=== PATIENT | female | born 1985 | race Caucasian/White ===

== ENCOUNTER 2020-12-25 13:09 | Emergency (ER) | payer BC, MEDICAID, OTHER ==
--- NOTE | 2020-12-25 15:05 | EDM.PDOC ---
ED HPI GENERAL MEDICAL PROBLEM - General Stated Complaint: LEFT CALF SWALLON, COLD TO THE TOUCH. Time Seen by Provider: 12/25/20 14:50 Source of Information: Reports: Patient, RN, RN Notes Reviewed History Limitations: Reports: No Limitations - History of Present Illness INITIAL COMMENTS - FREE TEXT/NARRATIVE: Patient presents to the ED via personal vehicle with for complaints of pain and swelling to left medial calf. She states she first noted the pain this morning; she notes the pain woke her up. She has taken no medications for this pain. She characterizes the pain as sharp in nature and notes it is localized to the medial upper calf. She denies experiencing pain similar to this in the past. She denies fever, shaking chills, chest pain, palpitations, or recent calf cramps. The patient states she had to bear her hold weight onto this extremity suddenly about a week ago, she is worried she developed a subsequent problem in her calf. - Related Data Allergies Allergy/AdvReac Type Severity Reaction Status Date / Time Penicillins Allergy Other Verified 12/25/20 14:46 NSAIDS (Non-Steroidal AdvReac Other Verified 12/25/20 14:46 Anti-Inflamma Home Meds: Home Meds Cetirizine [ZyrTEC] 10 mg PO BID 12/25/20 [History] EPINEPHrine [Epipen] 0.3 mg IM ASDIRECTED PRN 12/25/20 [History] Review of Systems - Review of Systems Review Of Systems: Comprehensive ROS is negative, except as noted in HPI. ED EXAM, GENERAL - Physical Exam Exam: See Below Exam Limited By: No Limitations General Appearance: Alert, No Apparent Distress Eye Exam: Bilateral Eye: EOMI, Normal Inspection, PERRL (4mm) Nose: Normal Inspection, Normal Mucosa, No Blood Throat/Mouth: Normal Inspection, Normal Lips, Normal Teeth, Normal Gums, Normal Oropharynx, Normal Voice, No Airway Compromise Head: Atraumatic, Normocephalic Respiratory/Chest: No Respiratory Distress, Lungs Clear, Normal Breath Sounds, No Accessory Muscle Use, Chest Non-Tender Cardiovascular: Normal Peripheral Pulses, Regular Rate, Rhythm, No Edema, No Gallop, No JVD, No Murmur, No Rub Peripheral Pulses: 2+: Radial (L), Radial (R), Dorsalis Pedis (L), Dorsalis Pedis (R) Back Exam: Normal Inspection, Full Range of Motion Extremities: Normal Range of Motion, Normal Capillary Refill, Leg Pain (To left upper medial calf). No: Pedal Edema, Ubaldo's Sign, Increased Warmth, Mottled, Pallor, Redness Neurological: Alert, Oriented, CN II-XII Intact, Normal Cognition, Normal Gait, No Motor/Sensory Deficits Psychiatric: Normal Affect, Normal Mood Skin Exam: Warm, Dry, Intact, Normal Color, No Rash. No: Ecchymosis, Erythema, Jaundice, Mottled, Pallor, Petechiae Course - Vital Signs Last Recorded V/S: Last Vital Signs Temp 98.2 F 12/25/20 14:46 Pulse 72 12/25/20 14:46 Resp 18 12/25/20 14:46 BP 136/90 12/25/20 14:46 Pulse Ox 95 12/25/20 14:46 - Orders/Labs/Meds Labs: Laboratory Tests 12/25/20 12/25/20 12/25/20 Range/Units 14:59 14:59 14:59 WBC 8.6 (5.0-10.0) 10^3/uL RBC 4.41 L (4.6-6.2) 10^6/uL Hgb 13.7 L (14.0-18.0) g/dL Hct 39.9 L (40.0-54.0) % MCV 90.5 (80-100) fL MCH 31.1 (27.0-34.0) pg MCHC 34.3 (33.0-35.0) g/dL Plt Count 210 (150-450) 10^3/uL Neut % (Auto) 69.7 (42.2-75.2) % Lymph % (Auto) 22.5 (20.5-50.1) % [place] % (Auto) 6.7 (2-8) % Eos % (Auto) 0.9 L (1.0-3.0) % Baso % (Auto) 0.2 (0.0-1.0) % PT 9.8 (9.0-12.0) SEC INR 1.0 (0.9-1.2) APTT 22.9 (22.0-34.0) SEC D-Dimer, Quantitative 457 H (0-400) ng/mL Sodium 140 (136-145) mmol/L Potassium 4.1 (3.5-5.1) mmol/L Chloride 103 (98-107) mmol/L Carbon Dioxide 27 (21-32) mmol/L Anion Gap 14.1 H (7-13) mEq/L BUN 12 (7-18) mg/dL Creatinine 0.76 (0.70-1.30) mg/dL Est Cr Clr Drug Dosing TNP Estimated GFR (MDRD) > 60 BUN/Creatinine Ratio 15.8 (No establ ref range) Glucose 102 H (74-99) mg/dL Lactic Acid (0.4-2.0) mmol/L Calcium 9.2 (8.5-10.1) mg/dL Magnesium 2.0 (1.8-2.4) mg/dL Total Bilirubin 0.4 (0.2-1.0) mg/dL AST 11 L (15-37) U/L ALT 21 (16-63) U/L Alkaline Phosphatase 71 (46-116) U/L Total Protein 8.1 (6.4-8.2) g/dL Albumin 4.1 (3.4-5.0) g/dL Globulin 4.0 Albumin/Globulin Ratio 1.0 03// Range/Units 14:59 WBC (5.0-10.0) 10^3/uL RBC (4.6-6.2) 10^6/uL Hgb (14.0-18.0) g/dL Hct (40.0-54.0) % MCV (80-100) fL MCH (27.0-34.0) pg MCHC (33.0-35.0) g/dL Plt Count (150-450) 10^3/uL Neut % (Auto) (42.2-75.2) % Lymph % (Auto) (20.5-50.1) % [place] % (Auto) (2-8) % Eos % (Auto) (1.0-3.0) % Baso % (Auto) (0.0-1.0) % PT (9.0-12.0) SEC INR (0.9-1.2) APTT (22.0-34.0) SEC D-Dimer, Quantitative (0-400) ng/mL Sodium (136-145) mmol/L Potassium (3.5-5.1) mmol/L Chloride (98-107) mmol/L Carbon Dioxide (21-32) mmol/L Anion Gap (7-13) mEq/L BUN (7-18) mg/dL Creatinine (0.70-1.30) mg/dL Est Cr Clr Drug Dosing Estimated GFR (MDRD) BUN/Creatinine Ratio (No establ ref range) Glucose (74-99) mg/dL Lactic Acid 1.2 (0.4-2.0) mmol/L Calcium (8.5-10.1) mg/dL Magnesium (1.8-2.4) mg/dL Total Bilirubin (0.2-1.0) mg/dL AST (15-37) U/L ALT (16-63) U/L Alkaline Phosphatase (46-116) U/L Total Protein (6.4-8.2) g/dL Albumin (3.4-5.0) g/dL Globulin Albumin/Globulin Ratio - Re-Assessments/Exams Free Text/Narrative Re-Assessment/Exam: 12/25/20 D-Dimer 457, will obtain venous Doppler US to r/o DVT. Venous Doppler of lower extremity unremarkable for DVT. CBC unremarkable for acute processes; no evidence of infection or anemia. CMP fairly benign, electrolytes are WNL, kidney and liver function is appropriate, however anion gap is slightly elevated at 14.1 Findings of examination, lab work, and US reviewed with patient. Will discharge patient home with instructions for watchful waiting and follow up with PCP. Patient verbalized understanding and agreement with the plan of care. Departure - Departure Time of Disposition: 16:52 Disposition: Home, Self-Care 01 Condition: Good Clinical Impression: Pain of left calf, Swelling of left lower extremity - Discharge Information *PRESCRIPTION DRUG MONITORING PROGRAM REVIEWED*: Not Applicable *COPY OF PRESCRIPTION DRUG MONITORING REPORT IN PATIENT EMILY: Not Applicable Forms: ED Department Discharge Additional Instructions: 1.) You may take Tylenol 650mg every six hours, as pain persists. 2.) Monitor the swelling to your leg, should it continue to increase in size follow up with your primary care provider. Sepsis Event Note (ED) - Evaluation Sepsis Screening Result: No Definite Risk
[2020-12-25 15:26] LABS: ANION GAP 14.1 mEq/L (7-13); CHLORIDE,CL 103 mmol/L (98-107); SODIUM,NA 140 mmol/L (136-145)
[2020-12-25 15:36] LABS: PTT,PARTIAL THROMBOPLSTIN TIME 22.9 SEC (22.0-34.0)
--- NOTE | 2020-12-25 16:43 | US ---
PROCEDURE INFORMATION: Exam: US Duplex Left Lower Extremity Veins, Limited Exam date and time: 12/25/2020 4:12 PM Age: 35 years old Clinical indication: Pain; Leg, lower; Left; Additional info: Pain and edema to left lower extremity TECHNIQUE: Imaging protocol: Real-time Duplex ultrasound of the Left Lower Extremity with 2-D thompson scale, color Doppler flow and spectral waveform analysis with image documentation. Limited exam focused on the left lower extremity veins. COMPARISON: No relevant prior studies available. FINDINGS: Left deep veins: Unremarkable. The common femoral, femoral, proximal profunda femoral and popliteal veins are patent without thrombus. Normal Doppler waveforms. Normal compressibility and/or augmentation response. Left superficial veins: Unremarkable. Saphenofemoral junction is patent without thrombus. Soft tissues: Unremarkable. IMPRESSION: Negative. No deep venous thrombosis is seen.
== END 2020-12-25 17:08 | disposition home or self-care (01) ==
LOC: EDSEX 13:09 → DL.ED 13:09
DX: M79.662 Pain in left lower leg (principal); M79.89 Other specified soft tissue disorders; Z88.0 Allergy status to penicillin; Z88.6 Allergy status to analgesic agent
CPT/HCPCS: 36415; 80053; 83605; 83735; 85025; 85379; 85610; 85730; 93971; 99283; 99284-25

== ENCOUNTER 2021-06-02 04:26 | Emergency (ER) | payer MEDICAID ==
[2021-06-02] MEDS ORDERED: Ondansetron 4 MG/2 ML SDV IVPUSH ONE (04:34)
[2021-06-02] MEDS ORDERED: Sodium Chloride 0.9% 1,000 ML IV ONE (04:37)
[2021-06-02] MEDS ORDERED: Sodium Chloride 0.9% 10 ML Syringe FLUSH PRN (04:46)
[2021-06-02] MEDS ORDERED: Iopamidol 612 MG/ML 100 ML Bottle IVPUSH ONE (04:48)
--- NOTE | 2021-06-02 04:52 | EDM.PDOC ---
ED HPI GENERAL MEDICAL PROBLEM - General Chief Complaint: Gastrointestinal Problem Stated Complaint: VOMITING, NAUSEA, Time Seen by Provider: 06/02/21 04:45 Source of Information: Reports: Patient History Limitations: Reports: No Limitations - History of Present Illness INITIAL COMMENTS - FREE TEXT/NARRATIVE: Pt is here for intractable vomiting that started around 2100 this evening. She had gone out to eat and had the fish, then noted the vomiting started. She is unsure it if was food poisoning or something else. No one else in the family with similar symptoms, but no one else had the fish. She also notes worsening of her chronic RUQ pain as well as diarrhea. She became concerned when she started vomiting some blood about 1 hour prior to arrival. She has a history of chrons disease and has had blood in her stool before, but never in her vomiting. She has had multiple colonoscopies and EGDs with lesion removals. No history of appendix or gallbladder removal. Last colonoscopy was earlier this year. She reports that normally when she starts to vomit, she lets herself then is able to fall asleep, but she is unable to get comfortable or get the vomiting to stop. Onset Date: 06/01/21 Onset Time: 21:00 Duration: Getting Worse Location: Reports: Abdomen Quality: Reports: Throbbing - Related Data Allergies Allergy/AdvReac Type Severity Reaction Status Date / Time Penicillins Allergy Other Verified 12/25/20 14:46 NSAIDS (Non-Steroidal AdvReac Other Verified 12/25/20 14:46 Anti-Inflamma Home Meds: Home Meds Cetirizine [ZyrTEC] 10 mg PO BID 12/25/20 [History] EPINEPHrine [Epipen] 0.3 mg IM ASDIRECTED PRN 12/25/20 [History] Past Medical History Gastrointestinal History: Reports: Other (See Below) Other Gastrointestinal History: Crohn's disease Social & Family History - Caffeine Use Caffeine Use: Reports: Soda ED ROS GENERAL - Review of Systems Review Of Systems: Comprehensive ROS is negative, except as noted in HPI. ED EXAM, GI/ABD - Physical Exam Exam: See Below Exam Limited By: No Limitations General Appearance: Alert, WD/WN, Mild Distress (due to vomiting) Eyes: Bilateral: Normal Appearance Ears: Normal External Exam Throat/Mouth: Normal Voice, No Airway Compromise Head: Atraumatic, Normocephalic Neck: Supple, Non-Tender Respiratory/Chest: No Respiratory Distress, Lungs Clear, Normal Breath Sounds, No Accessory Muscle Use, Chest Non-Tender Cardiovascular: Normal Peripheral Pulses, Regular Rate, Rhythm, No Murmur GI/Abdominal Exam: Normal Bowel Sounds, Soft, Tender (RUQ > epigastric). No: Guarding, Rigid, Rebound (Female) Exam: Deferred Rectal (Female) Exam: Deferred Back Exam: Normal Inspection, Full Range of Motion Extremities: Normal Inspection, Normal Range of Motion Neurological: Alert, Oriented, Normal Cognition Psychiatric: Normal Affect, Normal Mood Skin Exam: Warm, Dry, Intact, Normal Color, No Rash Course - Vital Signs Last Recorded V/S: Last Vital Signs Temp 98.4 F 06/02/21 04:43 Pulse Resp 18 06/02/21 04:43 BP 128/81 06/02/21 04:43 Pulse Ox 97 06/02/21 04:43 - Orders/Labs/Meds Orders: Active Orders 24 hr Category Date Time Status Peripheral IV Care [RC] . DIRECTED Care 06/02/21 04:47 Ordered Sodium Chloride 0.9% [Saline Flush] Med 06/02/21 04:46 Ordered 10 ml FLUSH ASDIRECTED PRN Peripheral IV Insertion Adult [OM.PC] Stat Oth 06/02/21 04:46 Ordered Medication Orders Sodium Chloride (Sodium Chloride 0.9% 10 Ml Syringe) 10 ml FLUSH ASDIRECTED PRN PRN Reason: Keep Vein Open Labs: Laboratory Tests 06/02/21 06/02/21 Range/Units 04:41 04:41 WBC 8.9 (5.0-10.0) 10^3/uL RBC 4.73 (4.2-5.4) 10^6/uL Hgb 14.6 (12.0-16.0) g/dL Hct 42.4 (37.0-47.0) % MCV 89.6 (80-100) fL MCH 30.9 (27.0-34.0) pg MCHC 34.4 (33.0-35.0) g/dL Plt Count 207 (150-450) 10^3/uL Neut % (Auto) 80.8 H (42.2-75.2) % Lymph % (Auto) 12.4 L (20.5-50.1) % [place] % (Auto) 6.4 (2-8) % Eos % (Auto) 0.2 L (1.0-3.0) % Baso % (Auto) 0.2 (0.0-1.0) % Sodium 141 (136-145) mmol/L Potassium 3.6 (3.5-5.1) mmol/L Chloride 100 (98-107) mmol/L Carbon Dioxide 27 (21-32) mmol/L Anion Gap 17.6 H (7-13) mEq/L BUN 10 (7-18) mg/dL Creatinine 0.89 (0.55-1.02) mg/dL Est Cr Clr Drug Dosing 92.20 mL/min Estimated GFR (MDRD) > 60 BUN/Creatinine Ratio 11.2 (No establ ref range) Glucose 147 H (70-99) mg/dL Calcium 9.2 (8.5-10.1) mg/dL Total Bilirubin 0.7 (0.2-1.0) mg/dL AST 19 (15-37) U/L ALT 30 (14-59) U/L Alkaline Phosphatase 72 (46-116) U/L Total Protein 8.2 (6.4-8.2) g/dL Albumin 4.4 (3.4-5.0) g/dL Globulin 3.8 Albumin/Globulin Ratio 1.2 Lipase 96 (73-393) U/L HCG, Qual Negative Meds: Medications Generic Name Dose Route Start Last Admin Trade Name Freq PRN Reason Stop Dose Admin Sodium Chloride 10 ml 06/02/21 04:46 Sodium Chloride 0.9% 10 Ml Syringe FLUSH ASDIRECTED PRN Keep Vein Open Discontinued Medications Generic Name Dose Route Start Last Admin Trade Name Freq PRN Reason Stop Dose Admin Sodium Chloride 1,000 mls @ 999 mls/hr 06/02/21 04:37 06/02/21 04:55 Normal Saline IV 06/02/21 05:37 999 mls/hr .BOLUS ONE Administration Iopamidol 100 ml 06/02/21 04:48 06/02/21 06:02 Iopamidol 612 Mg/Ml 100 Ml Bottle IVPUSH 06/02/21 04:49 75 ml ONETIME ONE Administration Metoclopramide HCl 10 mg 06/02/21 06:00 06/02/21 06:04 Metoclopramide 10 Mg/2 Ml Sdv IVPUSH 06/02/21 06:01 10 mg ONETIME ONE Administration Ondansetron HCl 4 mg 06/02/21 04:34 06/02/21 04:47 Ondansetron 4 Mg/2 Ml Sdv IVPUSH 06/02/21 04:35 4 mg ONETIME ONE Administration Promethazine HCl 50 mg 06/02/21 06:17 06/02/21 06:29 Promethazine 25 Mg/Ml Sdv IM 06/02/21 06:18 50 mg ONETIME ONE Administration - Re-Assessments/Exams Free Text/Narrative Re-Assessment/Exam: Pt is finally feeling better after the phenergan. She denies any nausea and would like to go home. 06/02/21 06:56 Departure - Departure Time of Disposition: 06:57 Disposition: Home, Self-Care 01 Condition: Good Clinical Impression: Gastroenteritis - Discharge Information *PRESCRIPTION DRUG MONITORING PROGRAM REVIEWED*: Not Applicable *COPY OF PRESCRIPTION DRUG MONITORING REPORT IN PATIENT EMILY: Not Applicable Instructions: Viral Gastroenteritis, Adult, [id number] Forms: ED Department Discharge Additional Instructions: Keep well hydrated Phenergan Q8H/PRN for nausea and vomiting Call/return to ER if symptoms return or worsen Sepsis Event Note (ED) - Focused Exam Vital Signs: Vital Signs Temp Resp BP Pulse Ox 06/02/21 04:43 98.4 F 18 128/81 97 - My Orders Last 24 Hours: My Active Orders 06/02/21 04:46 Sodium Chloride 0.9% [Saline Flush] 10 ml FLUSH ASDIRECTED PRN Peripheral IV Insertion Adult [OM.PC] Stat 06/02/21 04:47 Peripheral IV Care [RC] . DIRECTED - Assessment/Plan Last 24 Hours: My Active Orders 06/02/21 04:46 Sodium Chloride 0.9% [Saline Flush] 10 ml FLUSH ASDIRECTED PRN Peripheral IV Insertion Adult [OM.PC] Stat 06/02/21 04:47 Peripheral IV Care [RC] . DIRECTED
[2021-06-02 05:08] LABS: ANION GAP 17.6 mEq/L (7-13); CHLORIDE,CL 100 mmol/L (98-107); SODIUM,NA 141 mmol/L (136-145)
[2021-06-02] MEDS ORDERED: Metoclopramide 10 MG/2 ML SDV IVPUSH ONE (06:00)
[2021-06-02] MEDS ORDERED: Promethazine 25 MG/ML SDV IM ONE (06:17)
--- NOTE | 2021-06-02 06:52 | CT ---
PROCEDURE INFORMATION: Exam: CT Abdomen And Pelvis With Contrast Exam date and time: 06/02/2021 5:48 AM Age: 35 years old Clinical indication: Other: Abdominal pain, intractable vomiting TECHNIQUE: Imaging protocol: Computed tomography of the abdomen and pelvis with contrast. Radiation optimization: All CT scans at this facility use at least one of these dose optimization techniques: automated exposure control; mA and/or kV adjustment per patient size (includes targeted exams where dose is matched to clinical indication); or iterative reconstruction. Contrast material: ISOVUE 300; Contrast volume: 75 ml; Contrast route: INTRAVENOUS (IV); COMPARISON: No relevant prior studies available. FINDINGS: Liver: Unremarkable liver. Gallbladder and bile ducts: No calcified gallstones or biliary ductal dilatation. Pancreas: No suggestion of pancreatic disease. Spleen: No splenomegaly. Adrenal glands: No adrenal mass. Kidneys and ureters: Approximately 8 mm ovoid low-density focus in the left renal cortex, too small to characterize. No hydronephrosis. Stomach and bowel: No distension of most of the stomach. No obstruction. No suggestion of wall thickening. Appendix: Normal appendix. Intraperitoneal space: No free air. Vasculature: Unremarkable. No abdominal aortic aneurysm. Lymph nodes: No enlarged nodes. Urinary bladder: Unremarkable as visualized. Reproductive: Unremarkable as visualized. Bones/joints: Old minimal compression fractures. Degeneration of several discs. Wide central focal disc protrusion at L3-L4 associated with moderate canal stenosis. Soft tissues: No acute finding. IMPRESSION: No acute findings. Chronic abnormalities detailed above. COMMENTS: Consistent with the [employer]'s Incidental Findings Committee white paper (J Am Wolf Radiol 2018): Any incidental renal lesion less than 1 cm or classified as too small to characterize, or any incidental cystic renal lesion characterized as simple-appearing, is likely benign. No follow-up imaging is recommended for these lesions per consensus recommendations based on imaging criteria.
== END 2021-06-02 07:03 | disposition home or self-care (01) ==
LOC: DL.ED 04:26
DX: K52.9 Noninfective gastroenteritis and colitis, unspecified (principal); Z88.0 Allergy status to penicillin; Z88.8 Allergy status to other drugs, medicaments and biological substances
CPT/HCPCS: 36415; 74177; 80053; 83690; 84703; 85025; 96372; 96374; 96375; 99284-25; J2405; J2550; J2765; J7030; Q9967

== ENCOUNTER 2021-06-04 01:21 | Emergency (ER) | payer MEDICAID ==
[2021-06-04] MEDS ORDERED: predniSONE 20 MG Tab PO ONE (01:59)
[2021-06-04] MEDS ORDERED: Sulfamethoxazole/Trimethoprim 800-160 MG Tab PO ONE (01:59)
--- NOTE | 2021-06-04 02:00 | EDM.PDOC ---
ED HPI GENERAL MEDICAL PROBLEM - General Chief Complaint: Skin Complaint Stated Complaint: HAS A RED LINE GOING UP LEFT ARM FROM IV ON 06/01 Time Seen by Provider: 06/04/21 01:55 Source of Information: Reports: Patient - History of Present Illness INITIAL COMMENTS - FREE TEXT/NARRATIVE: Pt is here for a red streak going up her left arm since being in the ER 2 days ago. She was in for intractable vomiting and had IV fluids as well as antiemetics. Pt noted a little redness around the IV site the following day, but didn't become concerned until the redness started to spread up her arm. She marked it with a sharpie when it was just past her wrist and decided to come in when it went past her elbow about 8 hours later. She denies any fevers or chills. She is otherwise feeling well. Her nausea is gone and she did well with the Phenergan that was sent home with her from her last visit. Left Hand Pain Score (Numeric/FACES): 3 - Related Data Allergies Allergy/AdvReac Type Severity Reaction Status Date / Time Penicillins Allergy Other Verified 12/25/20 14:46 NSAIDS (Non-Steroidal AdvReac Other Verified 12/25/20 14:46 Anti-Inflamma Home Meds: Home Meds Cetirizine [ZyrTEC] 10 mg PO BID 12/25/20 [History] EPINEPHrine [Epipen] 0.3 mg IM ASDIRECTED PRN 12/25/20 [History] Past Medical History HEENT History: Reports: None Cardiovascular History: Reports: None Respiratory History: Reports: None Gastrointestinal History: Reports: Other (See Below) Other Gastrointestinal History: Crohn's disease Genitourinary History: Reports: None Musculoskeletal History: Reports: None Endocrine/Metabolic History: Reports: None Immunologic History: Reports: None Oncologic (Cancer) History: Reports: None - Infectious Disease History Infectious Disease History: Reports: None Social & Family History - Family History Family Medical History: No Pertinent Family History - Tobacco Use Tobacco Use Status *Q: Never Tobacco User - Caffeine Use Caffeine Use: Reports: Coffee, Soda, Tea - Recreational Drug Use Recreational Drug Use: No ED ROS GENERAL - Review of Systems Review Of Systems: Comprehensive ROS is negative, except as noted in HPI. ED EXAM, SKIN/RASH Exam: See Below Exam Limited By: No Limitations General Appearance: Alert, WD/WN, No Apparent Distress Eye Exam: Bilateral Eye: Normal Inspection Ears: Normal External Exam Throat/Mouth: Normal Voice, No Airway Compromise Head: Atraumatic, Normocephalic Neck: Supple, Non-Tender Respiratory/Chest: No Respiratory Distress, Normal Breath Sounds Cardiovascular: Normal Peripheral Pulses, Regular Rate, Rhythm GI/Abdominal: No Distention (Female) Exam: Deferred Rectal (Female) Exam: Deferred Extremities: Normal Capillary Refill, Increased Warmth (left arm with red streak going up the arm from the IV site) Neurological: Alert, Oriented, Normal Cognition, No Motor/Sensory Deficits Psychiatric: Normal Affect, Normal Mood Skin: Warm, Dry, Intact Course - Vital Signs Last Recorded V/S: Last Vital Signs Temp 97.9 F 06/04/21 01:37 Pulse 66 06/04/21 01:37 Resp 16 06/04/21 01:37 BP 150/75 H 06/04/21 01:37 Pulse Ox 100 06/04/21 01:37 Departure - Departure Time of Disposition: 02:00 Disposition: Home, Self-Care 01 Condition: Good Clinical Impression: Phlebitis - Discharge Information *PRESCRIPTION DRUG MONITORING PROGRAM REVIEWED*: Not Applicable *COPY OF PRESCRIPTION DRUG MONITORING REPORT IN PATIENT EMILY: Not Applicable Additional Instructions: Prednisone 20 mg daily for 5 days, first dose given in the ER Bactrim DS twice daily for 7 days, first dose given in the ER Over the counter medications and warm compresses as needed for pain If symptoms worsen, or fail to improve in a few days, call/return to the ER. Sepsis Event Note (ED) - Focused Exam Vital Signs: Vital Signs Temp Pulse Resp BP Pulse Ox 06/04/21 01:37 97.9 F 66 16 150/75 H 100
== END 2021-06-04 02:10 | disposition home or self-care (01) ==
LOC: DL.ED 01:21
DX: I80.8 Phlebitis and thrombophlebitis of other sites (principal); Z88.0 Allergy status to penicillin; Z88.6 Allergy status to analgesic agent
CPT/HCPCS: 99283; A9270; J7512